=== PATIENT | female | born 1950 | race Caucasian/White ===

== ENCOUNTER → 2019-06-03 | Outpatient (CLI) | payer MEDICARE, OTHER ==
--- NOTE | 2019-06-03 11:57 | Diagnostic Imaging Report ---
INDICATION: Routine screening. COMPARISON: Comparison is made with prior mammograms from 01/12/2016 and 09/25/2013. TECHNIQUE: 2-D and 3-D bilateral screening mammography was performed. The current study was also evaluated with a Computer Aided Detection (CAD) system. 3-D tomosynthesis was also performed and reviewed. FINDINGS: Scattered fibroglandular densities are identified bilaterally. A nodular density in the upper left breast posterior depth appears more prominent on today's study. This appears to be laterally located on the tomographic images. No other mass is seen. No suspicious microcalcifications are identified. Axillae are unremarkable. IMPRESSION: Left breast density. Additional views are recommended for further evaluation. ACR BI-RADS Category 0: Incomplete. (Needs additional imaging evaluation). Result letter will be mailed to the patient. Note: At least 10% of breast cancer is not imaged by mammography. Dictated by: Dictated on workstation # [id number]
== END ==
LOC: RAD 09:35
PROVIDERS: ATTEND Nurse Practitioner Family
DX: Z12.31 Encounter for screening mammogram for malignant neoplasm of breast (principal); N63.20 Unspecified lump in the left breast, unspecified quadrant
CPT/HCPCS: 77067

== ENCOUNTER → 2019-07-04 | Outpatient (CLI) | payer MEDICARE ==
--- NOTE | 2019-07-04 14:04 | Diagnostic Imaging Report ---
INDICATION: Left breast density. Patient presents for additional views. Correlation is made with the recent screening study from 06/03/2019. Unilateral left 2-D and 3-D diagnostic mammography was performed including exaggerated CC, conventional ML and spot compression ML views. There is some residual density in the upper and outer aspect of the left breast approximately 8 cm from the nipple. It is uncertain if this represents a fibroglandular tissue versus questionable mass. Further evaluation with ultrasound is recommended. No suspicious calculations are seen. There is a benign intraparenchymal lymph node in the upper outer left breast posterior depth. IMPRESSION: BI-RADS 0 Persistent density in the upper outer left breast 8 cm from the nipple. Further evaluation of this area with ultrasound is recommended and will be performed today. ACR BI-RADS Category 0: Incomplete. (Needs additional imaging evaluation). Result letter will be mailed to the patient. Note: At least 10% of breast cancer is not imaged by mammography. Dictated by: Dictated on workstation # [id number]
--- NOTE | 2019-07-04 14:32 | Diagnostic Imaging Report ---
INDICATION: Left breast density. COMPARISON: Correlation is made with diagnostic mammogram earlier the same day and screening mammogram from 06/03/2019. FINDINGS: There is an intraparenchymal lymph node in the upper-outer left breast at the 1:30 location, 9 cm from the nipple, measuring approximately 5 mm x 6 mm. This likely does not account for the mammographic density. No other abnormalities are seen. The mammographic density may represent superimposed tissue. IMPRESSION: No suspicious sonographic abnormality is seen. Density noted mammographically may represent superimposed tissue. Even so, follow-up left mammogram in six months is recommended to show continued stability. ACR BI-RADS Category 3: Probably benign findings. Dictated by: Dictated on workstation # [id number]
== END ==
LOC: RAD 13:30
PROVIDERS: ATTEND Nurse Practitioner Family
DX: R92.2 Inconclusive mammogram (principal)
CPT/HCPCS: 76642

== ENCOUNTER → 2019-12-27 | Outpatient (CLI) | payer MEDICARE ==
--- NOTE | 2019-12-27 13:35 | Diagnostic Imaging Report ---
INDICATION: Six-month followup of left breast density. Correlation is made prior mammogram 06/03/2019 and 01/12/2016. Unilateral left 2-D and 3-D diagnostic mammography was performed with CAD. Area of density in the upper left breast posterior depth best seen on MLO view persists but is less prominent on today's study. This most likely represents fibroglandular tissue. No new masses detected. No malignant-appearing microcalcifications are seen. Left axilla is unremarkable. IMPRESSION: BI-RADS 3 Slight decrease in prominence of density in the upper left breast posterior depth best seen on the MLO view. This most likely represents fibroglandular tissue but continued followup is recommended. Repeat mammogram in 6 months is recommended to show continued stability. ACR BI-RADS Category 3: Probably benign findings. Result letter will be mailed to the patient. Note: At least 10% of breast cancer is not imaged by mammography. Dictated by: Dictated on workstation # [id number]
== END ==
LOC: RAD 13:15
PROVIDERS: ATTEND Nurse Practitioner Family
DX: R92.2 Inconclusive mammogram (principal)
CPT/HCPCS: 77065; G0279